=== PATIENT | male | born 1940 | race Caucasian/White ===

== ENCOUNTER 2019-12-21 14:03 | Emergency (ER) | payer OTHER ==
[~2019-12-21 14:03] MED LIST: AMLO1TAB6 PO; ASPI-1443 PO; METO50TA9 PO; TAMS-1 PO
[2019-12-21] MEDS ORDERED: ONDANSETRON HCL 4 MG/2 ML VIAL ONE (14:21)
[2019-12-21] MEDS ORDERED: FENTANYL CITRATE PF 50 MCG/1 ML 2ML VIAL ONE (14:22)
== END 2019-12-21 17:05 | disposition home or self-care (01) ==
LOC: EDH 14:03
DX: S43.005A Unspecified dislocation of left shoulder joint, initial encounter (principal); I10 Essential (primary) hypertension; E78.00 Pure hypercholesterolemia, unspecified; W18.39XA Other fall on same level, initial encounter; Y93.01 Activity, walking, marching and hiking; Y92.89 Other specified places as the place of occurrence of the external cause; Y99.8 Other external cause status
CPT/HCPCS: 23650; 70450; 72125; 73030 ×2; 93005; 96374; 96375; 99285; J2405; J3010

== ENCOUNTER 2020-07-06 20:22 | Emergency (ER) | payer OTHER ==
[2020-07-06 21:10] LABS: APPEARANCE,URINE CLOUDY (CLEAR); BILIRUBIN,URINE SMALL (NEGATIVE); COLOR,URINE BROWN (YELLOW); GLUCOSE, URINE (UA) NEGATIVE (NEGATIVE); KETONES,URINE 5 mg/dL (NEGATIVE); LEUKOCYTE ESTERASE ,URINE NEGATIVE (NEGATIVE); NITRATE,URINE NEGATIVE (NEGATIVE); OCCULT BLOOD,URINE LARGE (NEGATIVE); PH,URINE 5.5 (5.0-8.0); PROTEIN,URINE 100 mg/dL (NEGATIVE)
[2020-07-06 21:30] LABS: BACTERIA,URINE Few /HPF (None Seen); RBC,URINE Full Field /HPF (0-1); SQUAMOUS EPITHELIAL CELL,UR None Seen /HPF (0-2)
[2020-07-06 21:48] LABS: BASOPHILS % (AUTO) 0.2 % (0.0-5.0); EOSINOPHILS % (AUTO) 0.2 % (0.0-8.0); HEMATOCRIT 46.1 % (42-54); LYMPHOCYTES % (AUTO) 12.7 % (21.0-51.0); MEAN CORPUSCULAR HEMOGLOBIN 31.2 pg (27.0-33.0); MEAN CORPUSCULAR HGB CONC 34.7 g/dL (32.0-36.0); MEAN CORPUSCULAR VOLUME 89.9 fL (79-99); MONOCYTES % (AUTO) 10.2 % (3.0-13.0); NEUTROPHILS % (AUTO) 75.9 % (40.0-77.0); PLATELET COUNT (AUTO) 150 K/uL (130-400); RED BLOOD CELL COUNT(AUTO) 5.13 MIL/uL (4.50-6.20); RED CELL DISTRIBUTION WIDTH 11.8 % (11.0-15.5); WHITE BLOOD COUNT (AUTO) 13.3 K/uL (4.8-10.8)
[2020-07-06 21:58] LABS: CREATININE 1.4 mg/dL (0.5-1.5); POTASSIUM 3.8 mmol/L (3.5-5.1)
[2020-07-06 22:03] LABS: BILIRUBIN,TOTAL 1.4 mg/dL (0.2-1.0); TOTAL PROTEIN, SERUM 8.2 g/dL (6.0-8.3)
[2020-07-06] MEDS ORDERED: KETOROLAC TROMETHAMINE 15MG/ML ONE (22:54)
[2020-07-06] MEDS ORDERED: TAMSULOSIN HCL 0.4 MG CAP.ER.24H ONE (22:54)
[2020-07-08] MEDS ORDERED: MECO10005 PO (19:49)
== END 2020-07-07 02:28 | disposition home or self-care (01) ==
LOC: EDH 20:22
DX: N20.0 Calculus of kidney (principal); I10 Essential (primary) hypertension; E78.00 Pure hypercholesterolemia, unspecified; E86.0 Dehydration; Z90.49 Acquired absence of other specified parts of digestive tract; Z87.891 Personal history of nicotine dependence
CPT/HCPCS: 36415; 74176; 80053; 81001; 85025; 96361; 96374; 99284; J1885; J7030

== ENCOUNTER 2020-07-08 10:20 | Observation (INO) | payer OTHER ==
[~2020-07-08] VITALS: Ht 172.7 cm; Wt 71.4 kg
[2020-07-08 10:52] LABS: APPEARANCE,URINE TURBID (CLEAR); BILIRUBIN,URINE MODERATE (NEGATIVE); COLOR,URINE RED (YELLOW); GLUCOSE, URINE (UA) NEGATIVE (NEGATIVE); KETONES,URINE 5 mg/dL (NEGATIVE); LEUKOCYTE ESTERASE ,URINE TRACE (NEGATIVE); NITRATE,URINE POSITIVE (NEGATIVE); OCCULT BLOOD,URINE LARGE (NEGATIVE); PH,URINE 5.5 (5.0-8.0); PROTEIN,URINE 100 mg/dL (NEGATIVE)
[2020-07-08] MEDS ORDERED: MORPHINE SULFATE 4 MG/1ML SYG ONE (10:54)
[2020-07-08 11:01] LABS: BASOPHILS % (AUTO) 0.3 % (0.0-5.0); EOSINOPHILS % (AUTO) 0.8 % (0.0-8.0); HEMATOCRIT 44.1 % (42-54); LYMPHOCYTES % (AUTO) 17.4 % (21.0-51.0); MEAN CORPUSCULAR HEMOGLOBIN 30.2 pg (27.0-33.0); MEAN CORPUSCULAR HGB CONC 33.1 g/dL (32.0-36.0); MEAN CORPUSCULAR VOLUME 91.1 fL (79-99); NEUTROPHILS % (AUTO) 66.7 % (40.0-77.0); PLATELET COUNT (AUTO) 145 K/uL (130-400); RED BLOOD CELL COUNT(AUTO) 4.84 MIL/uL (4.50-6.20); RED CELL DISTRIBUTION WIDTH 11.9 % (11.0-15.5); WHITE BLOOD COUNT (AUTO) 7.8 K/uL (4.8-10.8)
[2020-07-08 11:12] LABS: ALBUMIN 4.2 g/dL (3.5-5.0); BILIRUBIN,TOTAL 1.2 mg/dL (0.2-1.0); CREATININE 1.4 mg/dL (0.5-1.5); POTASSIUM 4.3 mmol/L (3.5-5.1); TOTAL PROTEIN, SERUM 7.3 g/dL (6.0-8.3)
[2020-07-08 11:23] LABS: RBC,URINE Full Field /HPF (0-1)
[2020-07-08 11:24] LABS: BACTERIA,URINE Few /HPF (None Seen)
[2020-07-08] MEDS ORDERED: CEFTRIAXONE SODIUM 1 GM ONE (11:58)
[2020-07-08] MEDS ORDERED: KETOROLAC TROMETHAMINE 30MG/ML ONE (11:58)
[2020-07-08] MEDS ORDERED: MORPHINE SULFATE 2 MG/ML 1ML SYG IVP PRN (15:15)
[2020-07-08] MEDS ORDERED: ZOSYN 3.375GM +NS 50ML IV SCH (15:15)
[2020-07-08] MEDS ORDERED: HYDRALAZINE HCL 20 MG/ML VIAL IV PRN (15:15)
[2020-07-08] MEDS ORDERED: ACETAMINOPHEN 325 MG TAB PO PRN (15:15)
[2020-07-08] MEDS ORDERED: ONDANSETRON HCL 4 MG/2 ML VIAL IVP PRN (15:15)
[2020-07-08] MEDS ORDERED: LACTULOSE 20 GM/30 ML UDCUP PO PRN (15:15)
[2020-07-08] MEDS ORDERED: ACETAMINOPHEN 650 MG SUPPOSITORY RC PRN (15:15)
[2020-07-08] MEDS: LACTATED RINGERS 1000ML 1,000 ML IV SCH ×2 (15:15→23:15)
[2020-07-08] MEDS: ZOSYN 3.375GM+NS 50ML 50 ML IV SCH (16:00)
[2020-07-08 16:03] LABS: CREATINE KINASE, TOTAL 227 U/L (21-232); MYOGLOBIN 123 ng/mL (10-92); TROPONIN I < 0.04 ng/mL (0.00-0.06)
[2020-07-08] MEDS ORDERED: ZOSYN 3.375GM+NS 50ML 50 ML IV ONE (17:10)
[2020-07-08] MEDS ORDERED: LACTATED RINGERS 1000ML 1,000 ML IV ONE (17:12)
[2020-07-08] MEDS ORDERED: IOHEXOL 350 MG/ML 100ML INFUS..BTL IV ONE (17:14)
[2020-07-08 18:34] VITALS: BP 171/80
[2020-07-08] MEDS ORDERED: MECO10005 PO (19:49)
[2020-07-08 20:00] VITALS: BP 147/79
[2020-07-08 21:07] LABS: CREATINE KINASE, TOTAL 250 U/L (21-232); MYOGLOBIN 189 ng/mL (10-92); TROPONIN I < 0.04 ng/mL (0.00-0.06)
[2020-07-09] VITALS: BP 133/77
[2020-07-09] MEDS: ZOSYN 3.375GM+NS 50ML 50 ML IV SCH ×2 (00:30→09:30)
[2020-07-09] MEDS: LACTATED RINGERS 1000ML 1,000 ML IV SCH (01:48)
[2020-07-09 04:00] VITALS: BP 145/77
[2020-07-09 05:31] LABS: BASOPHILS % (AUTO) 0.2 % (0.0-5.0); EOSINOPHILS % (AUTO) 1.1 % (0.0-8.0); HEMATOCRIT 42.5 % (42-54); LYMPHOCYTES % (AUTO) 18.9 % (21.0-51.0); MEAN CORPUSCULAR HEMOGLOBIN 30.5 pg (27.0-33.0); MEAN CORPUSCULAR HGB CONC 33.6 g/dL (32.0-36.0); MEAN CORPUSCULAR VOLUME 90.6 fL (79-99); MONOCYTES % (AUTO) 13.7 % (3.0-13.0); NEUTROPHILS % (AUTO) 65.2 % (40.0-77.0); PLATELET COUNT (AUTO) 144 K/uL (130-400); RED BLOOD CELL COUNT(AUTO) 4.69 MIL/uL (4.50-6.20); RED CELL DISTRIBUTION WIDTH 11.8 % (11.0-15.5); WHITE BLOOD COUNT (AUTO) 8.5 K/uL (4.8-10.8)
[2020-07-09 05:52] LABS: HEMOGLOBIN A1C 5.9 % (4.0-6.0)
[2020-07-09 06:00] LABS: CARBON DIOXIDE 28 mmol/L (21-32); CHLORIDE 105 mmol/L (101-111); CREATINE KINASE, TOTAL 214 U/L (21-232); CREATININE 1.3 mg/dL (0.5-1.5); GLOMERULAR FILTR. RATE CALC 56 mL/min (>60); GLUCOSE,RANDOM 87 mg/dL (70-105); MYOGLOBIN 109 ng/mL (10-92); POTASSIUM 3.8 mmol/L (3.5-5.1); SODIUM SERUM 141 mmol/L (136-145); TROPONIN I < 0.04 ng/mL (0.00-0.06); UREA NITROGEN, BLOOD 14 mg/dL (7-18)
[2020-07-09 07:30] VITALS: BP 154/64
[2020-07-09] MEDS ORDERED: MECOBALAMIN PO SCH ×2 (09:00)
[2020-07-09] MEDS ORDERED: [UNRECOGNIZED DRUG - OTHER] PO SCH (09:00)
[2020-07-09] MEDS ORDERED: ATORVASTATIN PO SCH ×2 (09:00)
[2020-07-09] MEDS ORDERED: PANTOPRAZOLE SODIUM 40 MG TABLET.DR PO SCH (09:00)
[2020-07-09] MEDS ORDERED: AMLODIPINE PO SCH ×2 (09:00)
[2020-07-09 11:30] VITALS: BP 168/85
[2020-07-09] MEDS ORDERED: LEVO500T89 PO (12:52)
[2020-07-09] MEDS ORDERED: TAMSULOSIN HCL 0.4 MG CAP.ER.24H PO SCH (21:00)
[2020-07-09] MEDS ORDERED: METOPROLOL SUCCINATE 50 MG TAB.SR.24H PO SCH (21:00)
== END 2020-07-09 14:45 | disposition home or self-care (01) ==
LOC: EDH 10:20 → EDHIP 15:12 → 3DH 17:25
PROVIDERS: ADMIT Internal Medicine Critical Care Medicine; ATTEND Internal Medicine Critical Care Medicine
DX: N39.0 Urinary tract infection, site not specified (principal); Z20.822 Contact with and (suspected) exposure to COVID-19; N13.2 Hydronephrosis with renal and ureteral calculous obstruction; I12.9 Hypertensive chronic kidney disease with stage 1 through stage 4 chronic kidney disease, or unspecified chronic kidney disease; N18.9 Chronic kidney disease, unspecified; R31.0 Gross hematuria; N28.1 Cyst of kidney, acquired; I25.10 Atherosclerotic heart disease of native coronary artery without angina pectoris; E78.5 Hyperlipidemia, unspecified; N32.89 Other specified disorders of bladder; E78.00 Pure hypercholesterolemia, unspecified; Z85.46 Personal history of malignant neoplasm of prostate; Z87.891 Personal history of nicotine dependence; Z95.5 Presence of coronary angioplasty implant and graft; Z90.49 Acquired absence of other specified parts of digestive tract; Z92.3 Personal history of irradiation; Z79.899 Other long term (current) drug therapy
CPT/HCPCS: 36415 ×2; 74178; 76770; 80048; 80053; 81001; 82550 ×3; 83036; 83735; 83874 ×3; 84100; 84484 ×3; 85025 ×2; 87088; 87426; 96365; 96366; 99285; G0378 ×24; J0696; J1885; J2270; J2543 ×3; J7120 ×2; Q9967; U0003

== ENCOUNTER 2020-07-13 14:51 | Observation (INO) | payer OTHER ==
[~2020-07-13] VITALS: Ht 172.7 cm; Wt 71.7 kg
[2020-07-13] VITALS (21 sets, daily range): BP systolic 142–163; BP diastolic 69–92
[~2020-07-13 14:51] MED LIST changes: -ASPI-1443 PO; +LEVO500T89 PO; +MECO10005 PO
[2020-07-13] MEDS ORDERED: ONDANSETRON HCL 4 MG/2 ML VIAL IVP PRN (15:30)
[2020-07-13] MEDS ORDERED: MORPHINE 2 MG SYG (2MG/1ML) IVP PRN (15:30)
[2020-07-13] MEDS ORDERED: LACTATED RINGERS 1000ML 1,000 ML IV ONE (15:38)
[2020-07-13] MEDS ORDERED: POTASSIUM CHLORIDE 20 MEQ ERTAB PO PRN (15:45)
[2020-07-13] MEDS ORDERED: POTASSIUM CHLORIDE 10% ELIXIR 20 MEQ/15 ML UDCUP PO PRN (15:45)
[2020-07-13] MEDS ORDERED: POTASSIUM CHLORIDE 20MEQ/100ML 100 ML IV PRN ×2 (15:45)
[2020-07-13] MEDS ORDERED: LIDOCAINE HCL-MPF 1% 2ML VIAL IM PRN (15:45)
[2020-07-13] MEDS ORDERED: LIDOCAINE HCL-MPF 1% 2ML VIAL IV PRN (15:45)
[2020-07-13] MEDS ORDERED: LABETALOL HCL 5 MG/ML 20ML VIAL IV PRN (15:45)
[2020-07-13 15:54] LABS: HEMATOCRIT 44.9 % (42-54); MEAN CORPUSCULAR HEMOGLOBIN 30.6 pg (27.0-33.0); MEAN CORPUSCULAR HGB CONC 33.6 g/dL (32.0-36.0); MEAN CORPUSCULAR VOLUME 91.1 fL (79-99); RED BLOOD CELL COUNT(AUTO) 4.93 MIL/uL (4.50-6.20); RED CELL DISTRIBUTION WIDTH 11.8 % (11.0-15.5)
[2020-07-13] MEDS ORDERED: CEFAZOLIN SODIUM 1 GM VIAL IVP PRN (16:00)
[2020-07-13 16:14] LABS: APPEARANCE,URINE Clear (CLEAR); BILIRUBIN,URINE Negative (NEGATIVE); COLOR,URINE Yellow (YELLOW); GLUCOSE, URINE (UA) Negative (NEGATIVE); KETONES,URINE Trace mg/dL (NEGATIVE); LEUKOCYTE ESTERASE ,URINE Negative (NEGATIVE); NITRATE,URINE Negative (NEGATIVE); OCCULT BLOOD,URINE Large (NEGATIVE); PROTEIN,URINE POS 1+ mg/dL (NEGATIVE)
[2020-07-13 16:42] LABS: BACTERIA,URINE Rare /HPF (None Seen); SQUAMOUS EPITHELIAL CELL,UR Rare /HPF (0-2); WBC,URINE 0-1 /HPF (0-1)
[2020-07-13 17:01] LABS: ALBUMIN 4.3 g/dL (3.5-5.0); BILIRUBIN,TOTAL 0.8 mg/dL (0.2-1.0); CREATININE 2.3 mg/dL (0.5-1.5); POTASSIUM 4.1 mmol/L (3.5-5.1); TOTAL PROTEIN, SERUM 7.7 g/dL (6.0-8.3)
[2020-07-13] MEDS ORDERED: IOHEXOL-350 50ML VIAL IV ONE (17:58)
[2020-07-13] MEDS ORDERED: DEXAMETHASONE SOD PHOSPHATE 10MG/ML 1ML VIAL ONE (18:36)
[2020-07-13] MEDS ORDERED: ONDANSETRON HCL 4 MG/2 ML VIAL ONE ×2 (18:36→18:38)
[2020-07-13] MEDS ORDERED: LIDOCAINE PF 100MG/5ML (2%) SYRINGE 5ML ONE (18:36)
[2020-07-13] MEDS ORDERED: SUCCINYLCHOLINE 200MG/10ML SYR ONE (18:36)
[2020-07-13] MEDS ORDERED: MIDAZOLAM HCL 1 MG/ML 2ML VIAL ONE (18:36)
[2020-07-13] MEDS ORDERED: PROPOFOL 10 MG/ML 20ML VIAL IV ONE (18:37)
[2020-07-13] MEDS ORDERED: NEOSTIGMINE 5MG/5ML SYR IV ONE (18:37)
[2020-07-13] MEDS ORDERED: FENTANYL CITRATE PF 50 MCG/1 ML 2ML VIAL ONE (18:37)
[2020-07-13] MEDS ORDERED: GLYCOPYRROLATE 1 MG/5 ML SYRINGE ONE (18:37)
[2020-07-13] MEDS ORDERED: ROCURONIUM 10MG/1ML SYR 10 MG/ML ML ONE (18:37)
[2020-07-13] MEDS: CEFTRIAXONE SODIUM 1 GM ONE ×2 (18:50→18:55)
[2020-07-13] MEDS ORDERED: EPHEDRINE SULFATE 50 MG/ML AMPULE ONE (18:58)
[2020-07-13] MEDS ORDERED: OPIUM/BELLADONNA ALKALOIDS 1 EACH SUPP.RECT RC ONE (19:34)
[2020-07-13] MEDS ORDERED: MEPERIDINE-PF 25 MG/ML SYG ONE (19:36)
[2020-07-13] MEDS: LACTATED RINGERS 1000ML 1,000 ML IV SCH (19:55)
[2020-07-13] MEDS: FAMOTIDINE/PF 20 MG/2 ML VIAL IV SCH (21:11)
[2020-07-14 00:45] VITALS: BP 140/78
[2020-07-14 01:45] VITALS: BP 135/78
[2020-07-14 04:00] VITALS: BP 134/75
[2020-07-14] MEDS: LACTATED RINGERS 1000ML 1,000 ML IV SCH (06:15)
[2020-07-14 07:56] LABS: HEMATOCRIT 43.6 % (42-54); MEAN CORPUSCULAR HEMOGLOBIN 30.4 pg (27.0-33.0); MEAN CORPUSCULAR HGB CONC 33.7 g/dL (32.0-36.0); MEAN CORPUSCULAR VOLUME 90.3 fL (79-99); RED BLOOD CELL COUNT(AUTO) 4.83 MIL/uL (4.50-6.20); RED CELL DISTRIBUTION WIDTH 11.8 % (11.0-15.5); WHITE BLOOD COUNT (AUTO) 7.2 K/uL (4.8-10.8)
[2020-07-14 08:11] LABS: CREATININE 1.6 mg/dL (0.5-1.5); POTASSIUM 4.4 mmol/L (3.5-5.1)
[2020-07-14 08:24] VITALS: BP 145/73
[2020-07-14] MEDS ORDERED: ATORVASTATIN CALCIUM 40 MG TABLET PO SCH (09:45)
[2020-07-14] MEDS ORDERED: AMLODIPINE BESYLATE 5 MG TAB PO SCH (09:45)
[2020-07-14] MEDS: FAMOTIDINE/PF 20 MG/2 ML VIAL IV SCH (09:50)
[2020-07-14] MEDS ORDERED: TAMSULOSIN HCL 0.4 MG CAP.ER.24H PO SCH (21:00)
[2020-07-14] MEDS ORDERED: METOPROLOL SUCCINATE 50 MG TAB.SR.24H PO SCH (21:00)
== END 2020-07-14 12:20 | disposition home or self-care (01) ==
LOC: EDH 14:51 → EDHIP 15:25 → 3CH 21:00
PROVIDERS: ADMIT Internal Medicine; ATTEND Internal Medicine
DX: N13.2 Hydronephrosis with renal and ureteral calculous obstruction (principal); Z20.822 Contact with and (suspected) exposure to COVID-19; D49.4 Neoplasm of unspecified behavior of bladder; N17.9 Acute kidney failure, unspecified; I12.9 Hypertensive chronic kidney disease with stage 1 through stage 4 chronic kidney disease, or unspecified chronic kidney disease; N18.9 Chronic kidney disease, unspecified; E78.5 Hyperlipidemia, unspecified; E78.00 Pure hypercholesterolemia, unspecified; Z87.440 Personal history of urinary (tract) infections; Z85.46 Personal history of malignant neoplasm of prostate; Z95.5 Presence of coronary angioplasty implant and graft; Z90.49 Acquired absence of other specified parts of digestive tract; Z92.3 Personal history of irradiation; Z79.899 Other long term (current) drug therapy
CPT/HCPCS: 36415 ×2; 52234; 52320; 74420; 80048; 80053; 81001; 82360; 85027 ×2; 86850; 86900; 86901; 87426; 88305; 96361; 96374; 96376; 99284; A4344; A4358; A5113; C1758; C1769; C1894; C2617; G0378 ×20; J0330; J0696; J1100; J2001; J2175; J2250; J2405 ×2; J2704; J2710; J3010; J3490 ×3; J7120 ×2; Q9967; U0003

== ENCOUNTER 2022-10-03 14:21 | Emergency (ER) | payer OTHER ==
[~2022-10-03] VITALS: Ht 172.7 cm; Wt 68.0 kg
[~2022-10-03 14:21] MED LIST changes: -LEVO500T89 PO
[2022-10-03 14:52] LABS: BASOPHILS % (AUTO) 0.9 % (0.0-5.0); HEMATOCRIT 46.1 % (42-54); LYMPHOCYTES % (AUTO) 14.8 % (21.0-51.0); MEAN CORPUSCULAR HEMOGLOBIN 30.8 pg (27.0-33.0); MEAN CORPUSCULAR HGB CONC 34.1 g/dL (32.0-36.0); MEAN CORPUSCULAR VOLUME 90.6 fL (79-99); MONOCYTES % (AUTO) 13.2 % (3.0-13.0); NEUTROPHILS % (AUTO) 64.2 % (40.0-77.0); PLATELET COUNT (AUTO) 190 K/uL (130-400); RED BLOOD CELL COUNT(AUTO) 5.09 MIL/uL (4.50-6.20); RED CELL DISTRIBUTION WIDTH 12.2 % (11.0-15.5); WHITE BLOOD COUNT (AUTO) 15.4 K/uL (4.8-10.8)
[2022-10-03 15:03] LABS: CREATININE 1.5 mg/dL (0.5-1.5); POTASSIUM 4.1 mmol/L (3.5-5.1)
[2022-10-03 15:04] LABS: INR 0.94 (0.85-1.15)
[2022-10-03 15:08] LABS: TOTAL PROTEIN, SERUM 7.4 g/dL (6.0-8.3)
[2022-10-03 15:51] VITALS: BP 150/70
[2022-10-03] MEDS ORDERED: [UNRECOGNIZED DRUG - CODE] SL (18:49)
== END 2022-10-03 19:06 | disposition home or self-care (01) ==
LOC: EDH 14:21
DX: R07.89 Other chest pain (principal); I10 Essential (primary) hypertension; E78.00 Pure hypercholesterolemia, unspecified; Z90.89 Acquired absence of other organs
CPT/HCPCS: 36415; 71045; 80053; 84484; 85025; 85610; 93005

== ENCOUNTER 2022-12-13 05:43 | Emergency (ER) | payer OTHER ==
[~2022-12-13] VITALS: Ht 177.8 cm; Wt 81.6 kg
[~2022-12-13 05:43] MED LIST changes: +[UNRECOGNIZED DRUG - CODE] SL
[2022-12-13] MEDS ORDERED: ONDANSETRON 4MG INJ ONE (06:26)
[2022-12-13] MEDS ORDERED: ONDANSETRON 4MG INJ IVP STA (06:28)
[2022-12-13 06:30] LABS: BASOPHILS # (AUTO) 0.02 K/uL (0.00-0.20); BASOPHILS % (AUTO) 0.2 % (0.0-5.0); HEMATOCRIT 41.3 % (42-54); IMMATURE GRANULOCYTE ABSOLUTE 0.19 K/uL (0-1); LYMPHOCYTES % (AUTO) 10.2 % (21.0-51.0); MEAN CORPUSCULAR HEMOGLOBIN 31.5 pg (27.0-33.0); MEAN CORPUSCULAR HGB CONC 34.9 g/dL (32.0-36.0); MEAN CORPUSCULAR VOLUME 90.4 fL (79-99); MONOCYTES # (AUTO) 0.2 K/uL (0.1-1.0); MONOCYTES % (AUTO) 2.2 % (3.0-13.0); NEUTROPHILS # (AUTO) 8.5 K/uL (1.8-7.7); NEUTROPHILS % (AUTO) 85.5 % (40.0-77.0); PLATELET COUNT (AUTO) 183 K/uL (130-400); RED BLOOD CELL COUNT(AUTO) 4.57 MIL/uL (4.50-6.20); RED CELL DISTRIBUTION WIDTH 12.1 % (11.0-15.5)
[2022-12-13] MEDS ORDERED: MORPHINE 4 MG SYG IVP ONE (06:30)
[2022-12-13 06:44] LABS: ALANINE AMINOTRANSFERASE 28 U/L (12-78); ALBUMIN 3.9 g/dL (3.5-5.0); ASPARTATE AMINOTRANSFERASE 19 U/L (10-37); BILIRUBIN,TOTAL 1.4 mg/dL (0.2-1.0); CARBON DIOXIDE 26 mmol/L (21-32); CHLORIDE 104 mmol/L (101-111); CREATININE 1.3 mg/dL (0.5-1.5); GLOMERULAR FILTR. RATE CALC 54 mL/min (>90); GLUCOSE,RANDOM 158 mg/dL (70-105); POTASSIUM 4.2 mmol/L (3.5-5.1); SODIUM SERUM 139 mmol/L (136-145); TOTAL PROTEIN, SERUM 7.1 g/dL (6.0-8.3); UREA NITROGEN, BLOOD 19 mg/dL (7-18)
[2022-12-13] MEDS ORDERED: 0.9% NACL 500ML IV.SOLN 500 ML IV ONE (07:00)
[2022-12-13] MEDS ORDERED: IOHEXOL 350 MG/ML 100ML INFUS..BTL IV ONE (07:24)
[2022-12-13 09:59] VITALS: BP 146/77; PULSE 92; RESP 19; O2SAT 95
[2022-12-13] MEDS ORDERED: IOHEXOL-350 75 ML VIAL IV ONE (10:12)
[2022-12-13 10:38] LABS: APPEARANCE,URINE CLEAR (CLEAR); BILIRUBIN,URINE NEGATIVE (NEGATIVE); COLOR,URINE LIGHT-YELLOW (YELLOW); GLUCOSE, URINE (UA) NEGATIVE (NEGATIVE); KETONES,URINE NEGATIVE (NEGATIVE); LEUKOCYTE ESTERASE ,URINE NEGATIVE Leu/uL (NEGATIVE); NITRATE,URINE NEGATIVE (NEGATIVE); OCCULT BLOOD,URINE LARGE (NEGATIVE); PROTEIN,URINE 10 mg/dL (NEGATIVE); UROBILINOGEN,URINE 0.2 mg/dL (0.2-1.0)
[2022-12-13 10:47] LABS: ADD UA MICROSCOPIC YES
[2022-12-13 10:51] LABS: MUCUS,URINE RARE LPF (None Seen); SQUAMOUS EPITHELIAL CELL,UR RARE /HPF (0-2)
== END 2022-12-13 11:56 | disposition home or self-care (01) ==
LOC: EDH 05:43
DX: N13.0 Hydronephrosis with ureteropelvic junction obstruction (principal); E78.00 Pure hypercholesterolemia, unspecified; I10 Essential (primary) hypertension; Z90.49 Acquired absence of other specified parts of digestive tract; Z95.5 Presence of coronary angioplasty implant and graft
CPT/HCPCS: 99285; 74178; 96374; 96375; 83735; 80053; 85025; 86140; 81001; 36415; J2405; J2270; Q9967

== ENCOUNTER → 2022-12-17 | Outpatient (CLI) | payer OTHER | END | disposition home or self-care (01) | LOC: RAH 10:04 | PROVIDERS: ATTEND Internal Medicine | DX: N28.1 Cyst of kidney, acquired (principal); R10.32 Left lower quadrant pain; N13.30 Unspecified hydronephrosis; R31.29 Other microscopic hematuria | CPT/HCPCS: 76770 ==